=== PATIENT | female | born 2000 | race Caucasian/White ===

== ENCOUNTER 2023-12-04 13:57 | Emergency (ER) | payer OTHER ==
[2023-12-04 13:58] VITALS: BP 145/96; TEMP 97.8; O2SAT 98
[2023-12-04] MEDS: methocarbamoL 500 MG TAB PO ONE (17:24)
[2023-12-04] MEDS: KETOROLAC 30 MG/ML 1ML VIAL IM ONE (17:25)
[2023-12-04] MEDS: ACETAMINOPHEN 500 MG TAB PO ONE (17:25)
[2023-12-04] MEDS ORDERED: METH-1164 PO (17:28)
== END 2023-12-04 17:36 | disposition home or self-care (01) ==
LOC: M ED 13:57
DX: M54.2 Cervicalgia (principal); M62.838 Other muscle spasm; Z79.891 Long term (current) use of opiate analgesic
CPT/HCPCS: 72052; 96372; 99282; J1885